=== PATIENT | male | born 1980 | race Caucasian/White ===

== ENCOUNTER 2020-11-04 03:34 | Emergency (ER) | payer MEDICAID, OTHER ==
[~2020-11-04 03:34] MED LIST: DOXY100C2 PO; NAPR-243 PO; SULF1TAB38 PO; TRAM-21 PO; TRM50T PO
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
[2020-11-04 04:03] VITALS: BP 135/93
== END 2020-11-04 04:04 | disposition home or self-care (01) ==
LOC: EDUNIT# 03:34 → ER FS 03:40
DX: S01.112A Laceration without foreign body of left eyelid and periocular area, initial encounter (principal); M54.5 Low back pain; F17.210 Nicotine dependence, cigarettes, uncomplicated; Z88.0 Allergy status to penicillin; V89.2XXA Person injured in unspecified motor-vehicle accident, traffic, initial encounter
CPT/HCPCS: 99283